=== PATIENT | female | born 1995 ===

== ENCOUNTER → 2024-04-23 | Outpatient (CLI) | payer OTHER ==
[2024-04-23 15:46] LABS: Appearance, Urine Clear (Clear); Bilirubin, Urine Neg (Neg); Blood, Urine Neg (Neg); Color, Urine Yellow (P-Yellow); Glucose Qualitative, Urine Neg (Neg); Ketones, Urine Neg (Neg); Leukocyte Esterase, Urine Neg (Neg); Nitrite, Urine Neg (Neg); Protein, Urine 1+ (Neg); Urobilinogen, Urine NORM (Normal)
[2024-04-23 15:51] LABS: BASOPHILS ABSOLUTE AUTO 0.03 K/mm3 (0.00-0.23); BASOPHILS PERCENT AUTO 0 % (0-2); EOSINOPHILS ABSOLUTE AUTO 0.61 K/mm3 (0.00-0.68); EOSINOPHILS PERCENT AUTO 8 % (0-6); Hematocrit 29.9 % (33.0-51.0); Hemoglobin 9.8 g/dL (11.5-16.0); IMMATURE GRAN ABSOLUTE AUTO 0.03 K/mm3 (0.00-0.10); IMMATURE GRAN PERCENT AUTO 0 % (0-1); LYMPHOCYTES PERCENT AUTO 25 % (21-46); MONOCYTES ABSOLUTE AUTO 0.41 K/mm3 (0.16-1.47); MONOCYTES PERCENT AUTO 5 % (4-13); Mean Corpuscular HGB 29.8 pg (26.0-34.0); Mean Corpuscular HGB Conc 32.8 g/dL (31.5-36.5); Mean Corpuscular Volume 91 fL (80-100); Mean Platelet Volume 10.8 fL (9.1-12.4); NEUTROPHILS ABSOLUTE AUTO 4.89 K/mm3 (1.96-9.15); NEUTROPHILS PERCENT AUTO 61 % (41-73); Platelet Count 275 K/mm3 (150-400); RDW Coefficient Variation 13.3 % (11.7-14.2); RDW Standard Deviation 44.2 fL (35.1-46.3); Red Blood Cell Count 3.29 M/mm3 (3.80-5.20); White Blood Cell Count 7.97 K/mm3 (4.00-11.30)
[2024-04-24 15:58] LABS: HEPATITIS B SURFACE ANTIGEN Negative (Negative)
[2024-04-24 17:12] LABS: HIV 1,2 COMBO ANTIGEN/ANTIBODY Negative (Negative)
[2024-04-24 17:48] LABS: HEPATITIS C AB CIA INTERP Negative (Negative); HEPATITIS C ANTIBODY CIA INDEX <0.02 IV
== END ==
LOC: LAB 10:40 → LAB SHORT 10:40
PROVIDERS: Registered Nurse Community Health
DX: Z34.91 Encounter for supervision of normal pregnancy, unspecified, first trimester (principal)
CPT/HCPCS: 84443; 86803; 87086; 87340; 87389

== ENCOUNTER → 2024-05-01 | Outpatient (CLI) | payer OTHER ==
[2024-05-02 14:17] LABS: Chlamydia Trachomatis Urine NOT DETECTED (NOT DETECT); Neisseria Gonorrhoea Urine NOT DETECTED (NOT DETECT)
== END ==
LOC: LAB 18:47 → LAB SHORT 18:47
PROVIDERS: Registered Nurse Community Health
DX: Z34.93 Encounter for supervision of normal pregnancy, unspecified, third trimester (principal)
CPT/HCPCS: 87491; 87591

== ENCOUNTER → 2024-05-08 | Outpatient (CLI) | payer OTHER ==
[2024-05-08 19:25] LABS: Hematocrit 29.3 % (33.0-51.0); Hemoglobin 9.7 g/dL (11.5-16.0)
== END | disposition home or self-care (01) ==
LOC: LAB 18:40 → LAB SHORT 18:40
PROVIDERS: Registered Nurse Community Health
DX: Z34.93 Encounter for supervision of normal pregnancy, unspecified, third trimester (principal)
CPT/HCPCS: 82728; 82950; 83540; 83550; 85014; 85018

== ENCOUNTER → 2024-06-26 | Outpatient (CLI) | payer OTHER | LOC: LAB 13:04 → LAB SHORT 13:04 | DX: Z34.93 Encounter for supervision of normal pregnancy, unspecified, third trimester (principal) | CPT/HCPCS: 87081; 87150 ==

== ENCOUNTER 2024-07-18 05:29 | Inpatient (IN) | payer OTHER ==
[~2024-07-18] VITALS: Ht 152.4 cm; Wt 47.6 kg
[2024-07-18] VITALS (35 sets, daily range): BP systolic 78–133; BP diastolic 52–87
[~2024-07-18 05:29] MED LIST: Methylergonovine Maleate 0.2MG / ML 1ML Amp IV ONE
[2024-07-18] MEDS ORDERED: Misoprostol 200 MCG Tab PR PRN (11:05)
[2024-07-18] MEDS ORDERED: Lactated Ringer's 1,000 ML IV SCH ×3 (11:05→22:20)
[2024-07-18] MEDS ORDERED: Methylergonovine Maleate 0.2MG / ML 1ML Amp IM PRN ×2 (11:05→22:20)
[2024-07-18] MEDS ORDERED: Misoprostol 200 MCG Tab BC PRN (11:05)
[2024-07-18] MEDS ORDERED: Acetaminophen 500 MG Tab PO PRN (11:05)
[2024-07-18] MEDS ORDERED: Lactated Ringer's 1,000 ML IV PRN (11:05)
[2024-07-18] MEDS ORDERED: Carboprost Tromethamine 250 MCG/ML 1ML Amp IM PRN (11:05)
[2024-07-18] MEDS ORDERED: Ondansetron HCl 2 MG / ML 2ML Vial IV PRN (11:05)
[2024-07-18] MEDS ORDERED: ePHEDrine Sulfate 50 MG/ML 1ML Injection XX PRN (11:05)
[2024-07-18] MEDS ORDERED: OXYTOCIN/RINGER'S LACTATE 500 ML IV PRN (11:05)
[2024-07-18] MEDS ORDERED: Oxytocin 10 Unit / ML Vial IM PRN (11:05)
[2024-07-18] MEDS ORDERED: FentaNYL 2mcg/ml-Bup 0.1% Epd 250 ML EPI PRN (11:05)
[2024-07-18] MEDS ORDERED: Calcium Carbonate 500 MG Tab Chew PO PRN (11:10)
[2024-07-18] MEDS ORDERED: Tranexamic Acid 100 ML IV PRN (11:20)
[2024-07-18] MEDS ORDERED: PRENATAL TABLE1 EAC2 PO (11:43)
[2024-07-18 11:50] LABS: BASOPHILS ABSOLUTE AUTO 0.03 K/mm3 (0.00-0.23); BASOPHILS PERCENT AUTO 0 % (0-2); EOSINOPHILS ABSOLUTE AUTO 0.06 K/mm3 (0.00-0.68); EOSINOPHILS PERCENT AUTO 1 % (0-6); Hematocrit 38.6 % (33.0-51.0); Hemoglobin 13.1 g/dL (11.5-16.0); IMMATURE GRAN ABSOLUTE AUTO 0.03 K/mm3 (0.00-0.10); IMMATURE GRAN PERCENT AUTO 0 % (0-1); LYMPHOCYTES ABSOLUTE AUTO 1.71 K/mm3 (0.84-5.20); LYMPHOCYTES PERCENT AUTO 14 % (21-46); MONOCYTES ABSOLUTE AUTO 0.61 K/mm3 (0.16-1.47); MONOCYTES PERCENT AUTO 5 % (4-13); Mean Corpuscular HGB 30.3 pg (26.0-34.0); Mean Corpuscular HGB Conc 33.9 g/dL (31.5-36.5); Mean Corpuscular Volume 89 fL (80-100); Mean Platelet Volume 11.1 fL (9.1-12.4); NEUTROPHILS ABSOLUTE AUTO 9.93 K/mm3 (1.96-9.15); NEUTROPHILS PERCENT AUTO 80 % (41-73); Platelet Count 235 K/mm3 (150-400); RDW Coefficient Variation 14.9 % (11.7-14.2); RDW Standard Deviation 49.1 fL (35.1-46.3); Red Blood Cell Count 4.32 M/mm3 (3.80-5.20); White Blood Cell Count 12.37 K/mm3 (4.00-11.30)
[2024-07-18] MEDS ORDERED: Benzocaine Topical Anesthetic Spray 60GM TOP PRN (22:20)
[2024-07-18] MEDS ORDERED: Misoprostol 100 MCG Tab PO PRN (22:20)
[2024-07-18] MEDS ORDERED: Ibuprofen 400 MG Tab PO PRN (22:20)
[2024-07-18] MEDS ORDERED: Ketorolac Tromethamine 30mg Vial IV PRN (22:20)
[2024-07-18] MEDS ORDERED: Lanolin Cream TOP PRN (22:20)
[2024-07-18] MEDS ORDERED: Docusate Sodium 100 MG Cap PO PRN (22:25)
[2024-07-18] MEDS ORDERED: FLU VACC TS2024-25(6MOS UP)/PF 45 MCG/0.5 ML SYRINGE IM ONE (22:25)
[2024-07-18] MEDS ORDERED: Acetaminophen 325 MG TABLET PO PRN (22:25)
[2024-07-18] MEDS ORDERED: Witch Hazel/Glycerin PADS TOP PRN (22:25)
[2024-07-18] MEDS ORDERED: OxyCODONE 5 mg/Acetamin 325 mg TABLET PO PRN (22:25)
[2024-07-18] MEDS ORDERED: OXYTOCIN/RINGER'S LACTATE 500 ML IV SCH (22:25)
[2024-07-19] VITALS (8 sets, daily range): BP systolic 88–105; BP diastolic 56–64
[2024-07-19] MEDS ORDERED: Prenatal Vit/FE Fumarate/FA 1 Tab PO SCH (09:00)
--- NOTE | 2024-07-19 11:15 | NUR ---
CORE REFERRAL PLACED CORE REFERRAL PLACED FOR RESOURCES AND SUPPORT FOR PARENTS/ FOR TRANSPORTATION, HOUSING, FOOD, CRIB CARE MANAGEMENT TEAM CONTACTED AND REFERRAL PLACED FOR PATIENT NEEDS.
[2024-07-19 11:18] LABS: Hematocrit 30.2 % (33.0-51.0); Hemoglobin 10.5 g/dL (11.5-16.0); Mean Corpuscular HGB 30.9 pg (26.0-34.0); Mean Corpuscular HGB Conc 34.8 g/dL (31.5-36.5); Mean Corpuscular Volume 89 fL (80-100); Mean Platelet Volume 10.6 fL (9.1-12.4); Platelet Count 189 K/mm3 (150-400); RDW Coefficient Variation 15.2 % (11.7-14.2); RDW Standard Deviation 49.8 fL (35.1-46.3); White Blood Cell Count 12.94 K/mm3 (4.00-11.30)
--- NOTE | 2024-07-19 18:14 | NUR ---
SHIFT SUMMARY NIGERIEN SPEAKING ONLY. WORM PACKER, LEYDI IN FOR SEVERAL HOURS TO ASSIST WITH PATERNITY, CERT, PROVIDER COMMUNICATIONS, SOCIAL PROFESSIONALS CONSULT, AND DISCHARGE EDUCATION. PT REMAINED IN BED MOST OF THE DAY, ENCOURAGED TO DRINK LOTS OF WATER AND EDUCATED ON LOWER BLOOD PRESSURES AND MILK PRODUCTION. PT VERBALIZES UNDERSTANDING AND BEGAN DRINKING. MOM VISUALIZED HOLDING 2 TIMES THIS SHIFT FOR FEEDING THEN BACK TO CRIB. THIS NURSE HAS NOT SEEN FATHER HOLD BABY. CHROMOSOMAL LABS ORDERED, GENOMIC MICROARRAY TESTING PATIENT HISTORY FORM ON FRONT OF BABY CHART.
--- NOTE | 2024-07-19 20:44 | NUR ---
WENT TO NURSERY AT BEGINING OF SHIFT. RN CALLED SHAKER OUT LEYDI TO COME IN TO HELP EXPLAIN WHY BABY IS IN NURSERY AND WHAT PROCEDURES ARE BEING DONE ON BABY. 2037-SHAKER OUT LEYDI HERE IN NURSEY WITH MOB & FOB TO HELP EXPLAIN WHATS GOING ON. LESLIE RN NURSERY NURSE IS THERE TO EXPLAIN FOR PARENTS/SHAKER OUT.
[2024-07-20] VITALS (7 sets, daily range): BP systolic 88–98; BP diastolic 51–63
--- NOTE | 2024-07-20 15:51 | NUR ---
REVIEWED DISCHARGED EDUCATION FOR MOTHER WITH PT THROUGH TRANSLATION. PAPERWORK ALREADY SIGNED. PT DENIES HAVING ANY QUESTIONS OR CONCERNS.
== END 2024-07-20 17:40 | disposition home or self-care (01) | DRG 807 ==
LOC: OBS 05:29 → BC 05:30 → OBS 11:03 → BC 11:05
PROVIDERS: ADMIT Advanced Practice Midwife
PROC: 10E0XZZ Delivery of Products of Conception, External Approach (ICD-10-PCS; principal; 2024-07-18)
PROC: 3E0R3BZ Introduction of Anesthetic Agent into Spinal Canal, Percutaneous Approach (ICD-10-PCS; 2024-07-18)
PROC: 00HU33Z Insertion of Infusion Device into Spinal Canal, Percutaneous Approach (ICD-10-PCS; 2024-07-18)
DX: O99.02 Anemia complicating childbirth (principal); Z37.0 Single live birth; Z3A.39 39 weeks gestation of pregnancy; D50.9 Iron deficiency anemia, unspecified
CPT/HCPCS: 36415; 51702; 59025; 81003; 85025; 85027; 86850; 86900; 86901; 99214; A9270; J1885; J2210; J7120